=== PATIENT | female | born 1985 | race Caucasian/White ===

== ENCOUNTER 2016-09-14 14:32 | Emergency (ER) | payer MEDICAID ==
[~2016-09-14] VITALS: Ht 170.2 cm; Wt 100.0 kg
[~2016-09-14 14:32] MED LIST: ALPRAZOLAM0.5 MG PO; AMLODIPINE5 MG PO; AMOXICILLIN/CL875 MG PO; AMOXICILLIN500 MG PO; AMOXICILLIN875 MG OR; ATENOLOL50 MG PO; ATIVAN0.5 MG PO; AUGMENTIN500TAB PO; AUGMENTIN875TAB PO; BACTRIM DS1 TAB PO; BUSPIRONE5 MG PO; BUT/APAP/CAF PO; CARAFATE1 GM PO; CIPROFLOXACN500 MG PO; COD OR; CONCEPT OB PO; CYMBALTA60 MG PO; DIFLUCAN150 MG PO; EFFEXOR37.5 MG PO; FIORICET PO; FIORICET/COD OR; FIORINAL OR; FLEXERIL PO; HYDROCHLOROT12.5 MG PO; IMITREX100 M1 PO; INTEGRA F PO; KEFLEX500 MG PO; KETOROLAC60 MG/2 ML IM; KLOR-CON M1010 MEQ PO; KLOR-CON M2020 MEQ PO; LABETALOL100 MG PO; LAMICTAL100 M1 PO; LISINOP/HCTZ1 TAB PO; LISINOPRIL10 MG PO; LISINOPRIL20 MG PO; LOPRESSOR50 MG PO; LORTAB 5 OR; LORTAB 5 PO; LORTAB 7.57.5 MG PO; LORTAB5 PO; LYRICA100 MG PO; LYRICA300 MG PO; LYRICA50 MG PO; Levaquin PO; METOPROL TAR50 MG PO; METOPROLOL TART50 MG PO; METOPROLOL50 M1 PO; MIRALAX3350 NF PO; NABUMETONE750 MG PO; NAPROSYN500 MG PO; NAPROXEN500 MG PO; NORCO1 TAB PO; OMEPRAZOLE20 MG PO; PANTOPRAZOLE SO40 MG OR; PERCOCET 10/31 COMBO PO; PHENERGAN SUP12.5 MG RE; POTASSIUM CHLO20 MEQ OR; PRENATAL1 TAB OR; PROCARDIA XL30 MG PO; PROTONIX20 M1 PO; PROTONIX40 MG PO; PROVERA10 MG PO; QUETIAPINE FUM100 MG PO; RISPERIDONE0.5 MG PO; SEROQUEL100 MG PO; STRATTERA18 MG OR; STRATTERA40 MG PO; STRATTERA60 MG PO; TOPAMAX100 MG PO; TORADOL PO; TRAMADOL HCL50 MG PO; TRAZODONE50 MG PO; TRILEPTAL150 M1 PO; TRILEPTAL300 M1 OR; TYLENOL # 31 TA1 PO; ULTRAM50 M1 PO; ULTRAM50 MG PO; VENLAFAXINE HC150 M1; VENLAFAXINE HC150 M1 PO; VENLAFAXINE HCL75 M1 PO; VENLAFAXINE37.5 M2 PO; ZOFRAN ODT4 MG OR; ZOFRAN ODT4 MG PO; [UNRECOGNIZED DRUG - OTHER] PO
[2016-09-14 15:11] LABS: HEMATOCRIT 39.7 % (37.0-47.0); HEMOGLOBIN 14.2 g/dl (12.0-16.0); IMMATURE GRANULOCYTES 0.3 % (0.0-1.0); MEAN CELL VOLUME 87.4 fL CALC (80.0-100.0); MEAN CORPUSCULAR HGB 31.3 pG CALC (26.0-32.0); MEAN CORPUSCULAR HGB CONC 35.8 g/L CALC (32.0-36.0); NEUT# 8.06 thou/uL (2.00-7.15); RED BLOOD COUNT 4.54 mill/uL (4.20-5.60); RED CELL DISTRI WIDTH 11.9 % (11.5-15.5)
[2016-09-14 15:19] LABS: ALBUMIN 4.6 g/dL (3.2-5.0); ALKALINE PHOSPHATASE 50 u/l (38-126); ANION GAP 13 (6-22 (CALC)); BILIRUBIN, TOTAL 0.5 mg/dL (0.0-1.4); BUN 9 mg/dL (7-17); BUN/CREATININE RATIO 12 (12-20 (CALC)); CALCIUM 9.5 mg/dL (8.4-10.2); CARBON DIOXIDE 27 mmol/l (22-30); CHLORIDE 105 mmol/l (95-108); CREATININE 0.7 mg/dL (0.5-1.0); GFR > 60 ML/MIN (>=60 (CALC)); GFR FOR AFR.AMER. > 60 ML/MIN (>=60 (CALC)); GLUCOSE 100 mg/dL (65-105); POTASSIUM 3.6 mmol/l (3.5-5.1); SGOT/AST 27 u/l (14-36); SGPT/ALT 30 u/l (9-52); SODIUM 142 mmol/l (137-146); TOTAL PROTEIN 7.9 g/dL (6.3-8.2)
[2016-09-14 15:31] LABS: MYOGLOBIN 26 ng/mL (0 - 62)
[2016-09-14 16:09] VITALS: BP 169/87
== END 2016-09-14 16:10 | disposition home or self-care (01) | DRG 312 ==
LOC: ED 14:32
PROVIDERS: Emergency Medicine
DX: R55 Syncope and collapse (principal); I10 Essential (primary) hypertension; I51.7 Cardiomegaly; F31.9 Bipolar disorder, unspecified; M19.90 Unspecified osteoarthritis, unspecified site; M79.7 Fibromyalgia; F17.210 Nicotine dependence, cigarettes, uncomplicated

== ENCOUNTER 2016-09-23 15:05 | Emergency (ER) | payer OTHER ==
[~2016-09-23] VITALS: Ht 170.2 cm; Wt 100.0 kg
[2016-09-23 16:20] LABS: HEMATOCRIT 38.8 % (37.0-47.0); HEMOGLOBIN 13.5 g/dl (12.0-16.0); IMMATURE GRANULOCYTES 0.2 % (0.0-1.0); MEAN CELL VOLUME 87.8 fL CALC (80.0-100.0); MEAN CORPUSCULAR HGB 30.5 pG CALC (26.0-32.0); MEAN CORPUSCULAR HGB CONC 34.8 g/L CALC (32.0-36.0); NEUT# 3.07 thou/uL (2.00-7.15); RED BLOOD COUNT 4.42 mill/uL (4.20-5.60); RED CELL DISTRI WIDTH 11.8 % (11.5-15.5)
[2016-09-23 16:30] LABS: ALBUMIN 4.3 g/dL (3.2-5.0); ALKALINE PHOSPHATASE 47 u/l (38-126); ANION GAP 14 (6-22 (CALC)); BILIRUBIN, TOTAL 0.4 mg/dL (0.0-1.4); BUN 10 mg/dL (7-17); BUN/CREATININE RATIO 13 (12-20 (CALC)); CALCIUM 8.8 mg/dL (8.4-10.2); CARBON DIOXIDE 28 mmol/l (22-30); CHLORIDE 103 mmol/l (95-108); CREATININE 0.8 mg/dL (0.5-1.0); GFR > 60 ML/MIN (>=60 (CALC)); GFR FOR AFR.AMER. > 60 ML/MIN (>=60 (CALC)); GLUCOSE 82 mg/dL (65-105); POTASSIUM 3.5 mmol/l (3.5-5.1); SGOT/AST 27 u/l (14-36); SGPT/ALT 28 u/l (9-52); SODIUM 141 mmol/l (137-146); TOTAL PROTEIN 7.5 g/dL (6.3-8.2)
[2016-09-23 17:37] LABS: INFLUENZA A NONE DETECTED (NONE DETECT); INFLUENZA B NONE DETECTED (NONE DETECT)
[2016-09-23 18:46] LABS: URINE BILIRUBIN - DIPSTICK NEGATIVE (NEGATIVE); URINE BLOOD DIPSTICK NEGATIVE (NEGATIVE); URINE CLARITY CLEAR; URINE COLOR YELLOW; URINE GLUCOSE - DIPSTICK NEGATIVE (NEGATIVE); URINE KETONE NEGATIVE (NEGATIVE); URINE LEUK ESTERASE NEGATIVE (Negative); URINE NITRITE - DIPSTICK NEGATIVE (Negative); URINE PROTEIN - DIPSTICK NEGATIVE (NEG-TRACE); URINE UROBILINOGEN - DIPSTICK 0.2 E.U./dL (0.2)
[2016-09-23] MEDS ORDERED: AMOXICILLIN500 MG PO (19:24)
[2016-09-23 19:37] VITALS: BP 139/84
== END 2016-09-23 19:37 | disposition home or self-care (01) | DRG 864 ==
LOC: ED 15:05
PROVIDERS: Emergency Medicine
DX: R50.9 Fever, unspecified (principal); I10 Essential (primary) hypertension; R05 Cough; J02.9 Acute pharyngitis, unspecified; R11.2 Nausea with vomiting, unspecified; H92.09 Otalgia, unspecified ear; F31.9 Bipolar disorder, unspecified; M79.7 Fibromyalgia; G89.29 Other chronic pain; M54.9 Dorsalgia, unspecified; F17.210 Nicotine dependence, cigarettes, uncomplicated

== ENCOUNTER 2017-01-31 20:43 | Emergency (ER) | payer SELFPAY ==
[~2017-01-31] VITALS: Ht 170.2 cm; Wt 87.3 kg
[2017-01-31 21:20] LABS: HEMATOCRIT 37.7 % (37.0-47.0); HEMOGLOBIN 13.2 g/dl (12.0-16.0); IMMATURE GRANULOCYTES 0.5 % (0.0-1.0); MEAN CELL VOLUME 88.5 fL CALC (80.0-100.0); NEUT# 7.06 thou/uL (2.00-7.15); RED BLOOD COUNT 4.26 mill/uL (4.20-5.60); RED CELL DISTRI WIDTH 12.2 % (11.5-15.5)
[2017-01-31 21:27] LABS: BARBITURATES NEGATIVE (NEGATIVE); COCAINE NEGATIVE (NEGATIVE); METHADONE NEGATIVE (NEGATIVE); OXCYCODONE NEGATIVE (NEGATIVE); TETRAHYDROCANNABIONOL POSITIVE (NEGATIVE); TRICYLIC ANTIDEPRESSANTS NEGATIVE (NEGATIVE)
[2017-01-31 21:29] LABS: ALBUMIN 4.2 g/dL (3.2-5.0); ALKALINE PHOSPHATASE 46 u/l (38-126); ANION GAP 15 (6-22 (CALC)); BILIRUBIN, TOTAL 0.5 mg/dL (0.0-1.4); BUN 9 mg/dL (7-17); BUN/CREATININE RATIO 11 (12-20 (CALC)); CALCIUM 9.4 mg/dL (8.4-10.2); CARBON DIOXIDE 26 mmol/l (22-30); CHLORIDE 103 mmol/l (95-108); CREATININE 0.8 mg/dL (0.5-1.0); GFR > 60 ML/MIN (>=60 (CALC)); GFR FOR AFR.AMER. > 60 ML/MIN (>=60 (CALC)); GLUCOSE 98 mg/dL (65-105); SGOT/AST 23 u/l (14-36); SGPT/ALT 37 u/l (9-52); SODIUM 141 mmol/l (137-146); TOTAL PROTEIN 7.2 g/dL (6.3-8.2)
[2017-01-31 21:41] LABS: MYOGLOBIN 22 ng/mL (0 - 62)
[2017-01-31 23:10] VITALS: BP 137/75
[2017-01-31] MEDS ORDERED: XANAX0.5 MG PO (23:11)
== END 2017-01-31 23:23 | disposition home or self-care (01) | DRG 313 ==
LOC: ED 20:43
PROVIDERS: Emergency Medicine
DX: R07.89 Other chest pain (principal); I10 Essential (primary) hypertension; F41.0 Panic disorder [episodic paroxysmal anxiety]; R06.02 Shortness of breath; Z72.0 Tobacco use; M79.602 Pain in left arm; M79.7 Fibromyalgia
CPT/HCPCS: J2060; Q9967

== ENCOUNTER 2017-04-25 21:10 | Emergency (ER) | payer SELFPAY ==
[~2017-04-25 21:10] MED LIST changes: +XANAX0.5 MG PO
== END 2017-04-25 21:22 | disposition left against medical advice (07) | DRG 951 ==
LOC: ED 21:10 → LWOBS 21:22
DX: Z91.19 Patient's noncompliance with other medical treatment and regimen (principal)

== ENCOUNTER 2017-05-15 19:06 | Emergency (ER) | payer MEDICAID ==
[~2017-05-15] VITALS: Ht 170.2 cm; Wt 90.9 kg
[2017-05-15] MEDS ORDERED: LOSARTAN POT50 MG PO (19:48)
[2017-05-15 19:50] VITALS: BP 138/88
== END 2017-05-15 19:50 | disposition home or self-care (01) | DRG 948 ==
LOC: ED 19:06
DX: G89.18 Other acute postprocedural pain (principal); F17.210 Nicotine dependence, cigarettes, uncomplicated; M79.7 Fibromyalgia; M19.90 Unspecified osteoarthritis, unspecified site

== ENCOUNTER 2017-08-02 10:01 | Emergency (ER) | payer SELFPAY ==
[~2017-08-02] VITALS: Ht 170.2 cm; Wt 85.0 kg
[~2017-08-02 10:01] MED LIST changes: +LOSARTAN POT50 MG PO
[2017-08-02 11:05] LABS: HEMATOCRIT 39.5 % (37.0-47.0); HEMOGLOBIN 13.9 g/dl (12.0-16.0); IMMATURE GRANULOCYTES 0.2 % (0.0-1.0); MEAN CELL VOLUME 86.6 fL CALC (80.0-100.0); MEAN CORPUSCULAR HGB 30.5 pG CALC (26.0-32.0); MEAN CORPUSCULAR HGB CONC 35.2 g/L CALC (32.0-36.0); NEUT# 3.44 thou/uL (2.00-7.15); RED BLOOD COUNT 4.56 mill/uL (4.20-5.60); RED CELL DISTRI WIDTH 11.9 % (11.5-15.5)
[2017-08-02 11:16] LABS: ALBUMIN 4.2 g/dL (3.2-5.0); ALKALINE PHOSPHATASE 63 u/l (38-126); BILIRUBIN, TOTAL 0.4 mg/dL (0.0-1.4); BUN 11 mg/dL (7-17); BUN/CREATININE RATIO 13 (12-20 (CALC)); CARBON DIOXIDE 26 mmol/l (22-30); CREATININE 0.8 mg/dL (0.5-1.0); GFR > 60 ML/MIN (>=60 (CALC)); GFR FOR AFR.AMER. > 60 ML/MIN (>=60 (CALC)); SGOT/AST 31 u/l (14-36); SGPT/ALT 47 u/l (9-52); SODIUM 143 mmol/l (137-146); TOTAL PROTEIN 7.9 g/dL (6.3-8.2)
[2017-08-02 11:18] LABS: ANION GAP 17 (6-22 (CALC)); CHLORIDE 104 mmol/l (95-108)
[2017-08-02 11:36] LABS: URINE BILIRUBIN - DIPSTICK NEGATIVE (NEGATIVE); URINE BLOOD DIPSTICK NEGATIVE (NEGATIVE); URINE COLOR YELLOW; URINE GLUCOSE - DIPSTICK NEGATIVE (NEGATIVE); URINE KETONE NEGATIVE (NEGATIVE); URINE LEUK ESTERASE NEGATIVE (Negative); URINE NITRITE - DIPSTICK NEGATIVE (Negative); URINE PH 6.5 (4.5-8.0); URINE PROTEIN - DIPSTICK NEGATIVE (NEG-TRACE); URINE UROBILINOGEN - DIPSTICK 0.2 E.U./dL (0.2)
[2017-08-02 11:38] LABS: URINE CLARITY CLEAR
[2017-08-02 11:40] LABS: BARBITURATES NEGATIVE (NEGATIVE); COCAINE NEGATIVE (NEGATIVE); METHADONE NEGATIVE (NEGATIVE); OXCYCODONE NEGATIVE (NEGATIVE); TETRAHYDROCANNABIONOL POSITIVE (NEGATIVE); TRICYLIC ANTIDEPRESSANTS NEGATIVE (NEGATIVE)
[2017-08-02] MEDS ORDERED: TORADOL PO (12:59)
[2017-08-02 13:05] VITALS: BP 166/90
== END 2017-08-02 13:10 | disposition home or self-care (01) | DRG 552 ==
LOC: ED 10:01
PROVIDERS: Emergency Medicine
DX: M54.9 Dorsalgia, unspecified (principal); F17.210 Nicotine dependence, cigarettes, uncomplicated; M79.7 Fibromyalgia; M19.90 Unspecified osteoarthritis, unspecified site; R42 Dizziness and giddiness
CPT/HCPCS: Q9967

== ENCOUNTER 2017-11-13 23:21 | Emergency (ER) | payer OTHER ==
[~2017-11-13] VITALS: Ht 170.2 cm; Wt 97.4 kg
[2017-11-13 23:51] LABS: URINE BILIRUBIN - DIPSTICK NEGATIVE (NEGATIVE); URINE BLOOD DIPSTICK SMALL (NEGATIVE); URINE CLARITY SL CLOUDY; URINE COLOR YELLOW; URINE GLUCOSE - DIPSTICK NEGATIVE (NEGATIVE); URINE KETONE NEGATIVE (NEGATIVE); URINE LEUK ESTERASE NEGATIVE (NEGATIVE); URINE NITRITE - DIPSTICK NEGATIVE (Negative); URINE PROTEIN - DIPSTICK NEGATIVE (NEG-TRACE); URINE SPECIFIC GRAVITY 1.025; URINE UROBILINOGEN - DIPSTICK 0.2 E.U./dL (0.2)
[2017-11-13 23:55] LABS: BARBITURATES NEGATIVE (NEGATIVE); COCAINE NEGATIVE (NEGATIVE); METHADONE NEGATIVE (NEGATIVE); OXCYCODONE NEGATIVE (NEGATIVE); TETRAHYDROCANNABIONOL POSITIVE (NEGATIVE); TRICYLIC ANTIDEPRESSANTS NEGATIVE (NEGATIVE)
[2017-11-14 00:03] LABS: URINE BACTERIA FEW hpf; URINE MUCUS FEW hpf (NONE-FEW); URINE SQUAMOUS EPITHELIAL CELL MODERATE EPI/hpf (0-FEW)
[2017-11-14 00:06] LABS: HEMATOCRIT 38.5 % (37.0-47.0); HEMOGLOBIN 13.3 g/dl (12.0-16.0); IMMATURE GRANULOCYTES 0.1 % (0.0-5.0); MEAN CELL VOLUME 87.3 fL CALC (80.0-100.0); MEAN CORPUSCULAR HGB 30.2 pG CALC (26.0-32.0); MEAN CORPUSCULAR HGB CONC 34.5 g/L CALC (32.0-36.0); NEUT# 4.77 thou/uL (2.00-7.15); RED BLOOD COUNT 4.41 mill/uL (4.20-5.60); RED CELL DISTRI WIDTH 11.6 % (11.5-15.5)
[2017-11-14 00:19] LABS: ALBUMIN 4.4 g/dL (3.2-5.0); ALKALINE PHOSPHATASE 60 u/l (38-126); AMYLASE 84 u/l (30-110); ANION GAP 15 (6-22 (CALC)); BILIRUBIN, TOTAL 0.3 mg/dL (0.0-1.4); BUN 9 mg/dL (7-17); BUN/CREATININE RATIO 11 (12-20 (CALC)); CARBON DIOXIDE 26 mmol/l (22-30); CHLORIDE 104 mmol/l (95-108); CREATININE 0.9 mg/dL (0.5-1.0); GFR > 60 ML/MIN (>=60 (CALC)); GFR FOR AFR.AMER. > 60 ML/MIN (>=60 (CALC)); LIPASE 148 u/l (23-300); POTASSIUM 3.4 mmol/l (3.5-5.1); SGOT/AST 26 u/l (14-36); SGPT/ALT 41 u/l (9-52); SODIUM 142 mmol/l (137-146); TOTAL PROTEIN 7.9 g/dL (6.3-8.2)
[2017-11-14] MEDS ORDERED: CIPROFLOXACN500 MG PO (01:42)
[2017-11-14] MEDS ORDERED: PREVACID30 M3 PO (01:42)
[2017-11-14] MEDS ORDERED: CARAFATE1 G1 PO (01:44)
[2017-11-14 02:00] VITALS: BP 138/76
== END 2017-11-14 02:09 | disposition home or self-care (01) ==
LOC: ED 23:21
PROVIDERS: Emergency Medicine
DX: N39.0 Urinary tract infection, site not specified (principal); K29.70 Gastritis, unspecified, without bleeding; N20.0 Calculus of kidney; Z87.891 Personal history of nicotine dependence; K62.5 Hemorrhage of anus and rectum; R31.9 Hematuria, unspecified
CPT/HCPCS: S0164

== ENCOUNTER 2018-01-25 19:01 | Emergency (ER) | payer OTHER ==
[~2018-01-25] VITALS: Ht 170.2 cm; Wt 97.4 kg
[~2018-01-25 19:01] MED LIST changes: +CARAFATE1 G1 PO; +PREVACID30 M3 PO
[2018-01-25] MEDS ORDERED: FLEXERIL PO (20:47)
[2018-01-25] MEDS ORDERED: LORTAB 1010 MG PO (20:47)
[2018-01-25 20:55] VITALS: BP 150/101
== END 2018-01-25 20:55 | disposition home or self-care (01) ==
LOC: ED 19:01
DX: S83.91XA Sprain of unspecified site of right knee, initial encounter (principal); S73.101A Unspecified sprain of right hip, initial encounter; I10 Essential (primary) hypertension; M19.90 Unspecified osteoarthritis, unspecified site; M79.7 Fibromyalgia; F31.9 Bipolar disorder, unspecified; W01.198A Fall on same level from slipping, tripping and stumbling with subsequent striking against other object, initial encounter; Y92.002 Bathroom of unspecified non-institutional (private) residence as the place of occurrence of the external cause

== ENCOUNTER 2018-10-30 10:17 | Emergency (ER) | payer SELFPAY ==
[~2018-10-30] VITALS: Ht 170.2 cm; Wt 97.2 kg
[~2018-10-30 10:17] MED LIST changes: +CARVEDILOL12.5 MG PO; +LORTAB 1010 MG PO; +PHENERGAN25 MG/TAB PO
[2018-10-30] MEDS ORDERED: METHOTREXATE2.5 MG PO (11:05)
[2018-10-30] MEDS ORDERED: FOLIC ACID1 M1 PO (11:06)
[2018-10-30] MEDS ORDERED: ALPRAZOLAM0.5 MG PO (11:07)
[2018-10-30] MEDS ORDERED: ESTRADIOL0.5 MG PO (11:07)
[2018-10-30] MEDS ORDERED: LOSARTAN POT100 MG PO (11:08)
[2018-10-30] MEDS ORDERED: PROAIR HFA108 MCG/AC PO (11:10)
[2018-10-30] MEDS ORDERED: VENLAFAXINE HC150 MG PO (11:10)
[2018-10-30] MEDS ORDERED: CLONIDINE HCL0.1 MG PO (11:11)
[2018-10-30] MEDS ORDERED: ATORVASTATIN CA20 MG PO (11:12)
[2018-10-30] MEDS ORDERED: SYMBICORT1 AE1 IN (11:13)
[2018-10-30] MEDS ORDERED: ONDANSETRON ODT8 MG PO (11:14)
[2018-10-30] MEDS ORDERED: RISPERDAL2 MG PO (11:15)
[2018-10-30] MEDS ORDERED: OXCARBAZEPINE300 MG PO (11:16)
[2018-10-30] MEDS ORDERED: QUETIAPINE FUM300 MG PO (11:16)
[2018-10-30 11:50] VITALS: BP 150/103
== END 2018-10-30 11:50 | disposition home or self-care (01) | DRG 951 ==
LOC: ED 10:17
DX: Z48.01 Encounter for change or removal of surgical wound dressing (principal); I10 Essential (primary) hypertension

== ENCOUNTER 2018-12-05 11:01 | Emergency (ER) | payer OTHER ==
[~2018-12-05] VITALS: Ht 170.2 cm; Wt 70.0 kg
[~2018-12-05 11:01] MED LIST changes: +ATORVASTATIN CA20 MG PO; +CLONIDINE HCL0.1 MG PO; +ESTRADIOL0.5 MG PO; +FOLIC ACID1 M1 PO; +LOSARTAN POT100 MG PO; +METHOTREXATE2.5 MG PO; +ONDANSETRON ODT8 MG PO; +OXCARBAZEPINE300 MG PO; +PROAIR HFA108 MCG/AC PO; +QUETIAPINE FUM300 MG PO; +RISPERDAL2 MG PO; +SYMBICORT1 AE1 IN; +VENLAFAXINE HC150 MG PO
[2018-12-05 11:37] LABS: HEMATOCRIT 39.8 % (37.0-47.0); HEMOGLOBIN 13.4 g/dl (12.0-16.0); IMMATURE GRANULOCYTES 0.3 % (0.0-5.0); MEAN CELL VOLUME 88.2 fL CALC (80.0-100.0); MEAN CORPUSCULAR HGB 29.7 pG CALC (26.0-32.0); MEAN CORPUSCULAR HGB CONC 33.7 g/L CALC (32.0-36.0); NEUT# 3.48 thou/uL (2.00-7.15); RED BLOOD COUNT 4.51 mill/uL (4.20-5.60); RED CELL DISTRI WIDTH 11.9 % (11.5-15.5)
[2018-12-05 11:55] LABS: ALBUMIN 4.4 g/dL (3.2-5.0); ALKALINE PHOSPHATASE 65 u/l (38-126); ANION GAP 12 (6-22 (CALC)); BILIRUBIN, TOTAL 0.5 mg/dL (0.0-1.4); BUN 8 mg/dL (7-17); BUN/CREATININE RATIO 10 (12-20 (CALC)); CARBON DIOXIDE 29 mmol/l (22-30); CHLORIDE 104 mmol/l (95-108); CREATININE 0.8 mg/dL (0.5-1.0); GFR > 60 ML/MIN (>=60 (CALC)); GFR FOR AFR.AMER. > 60 ML/MIN (>=60 (CALC)); POTASSIUM 3.4 mmol/l (3.5-5.1); SGOT/AST 28 u/l (14-36); SODIUM 142 mmol/l (137-146)
[2018-12-05 13:30] VITALS: BP 132/77
[2018-12-05] MEDS ORDERED: TORADOL PO (13:34)
[2018-12-05] MEDS ORDERED: CATAPRES0.1 MG PO (13:34)
== END 2018-12-05 13:52 | disposition home or self-care (01) | DRG 305 ==
LOC: ED 11:01
PROVIDERS: Emergency Medicine
DX: I10 Essential (primary) hypertension (principal); R51 Headache; R50.9 Fever, unspecified; F17.210 Nicotine dependence, cigarettes, uncomplicated

== ENCOUNTER 2019-01-23 11:51 | Emergency (ER) | payer OTHER ==
[~2019-01-23] VITALS: Ht 170.2 cm; Wt 95.0 kg
[~2019-01-23 11:51] MED LIST changes: +CATAPRES0.1 MG PO
[2019-01-23 14:11] LABS: HEMATOCRIT 40.3 % (37.0-47.0); HEMOGLOBIN 13.9 g/dl (12.0-16.0); IMMATURE GRANULOCYTES 0.3 % (0.0-5.0); MEAN CELL VOLUME 86.3 fL CALC (80.0-100.0); MEAN CORPUSCULAR HGB 29.8 pG CALC (26.0-32.0); MEAN CORPUSCULAR HGB CONC 34.5 g/L CALC (32.0-36.0); NEUT# 3.67 thou/uL (2.00-7.15); RED BLOOD COUNT 4.67 mill/uL (4.20-5.60); RED CELL DISTRI WIDTH 11.9 % (11.5-15.5)
[2019-01-23 14:12] LABS: URINE BILIRUBIN - DIPSTICK NEGATIVE (NEGATIVE); URINE BLOOD DIPSTICK NEGATIVE (NEGATIVE); URINE COLOR YELLOW; URINE GLUCOSE - DIPSTICK NEGATIVE (NEGATIVE); URINE KETONE NEGATIVE (NEGATIVE); URINE LEUK ESTERASE NEGATIVE (NEGATIVE); URINE NITRITE - DIPSTICK NEGATIVE (Negative); URINE PH 5.5 (4.5-8.0); URINE PROTEIN - DIPSTICK NEGATIVE (NEG-TRACE); URINE UROBILINOGEN - DIPSTICK 0.2 E.U./dL (0.2)
[2019-01-23 14:23] LABS: ALBUMIN 4.6 g/dL (3.2-5.0); ALKALINE PHOSPHATASE 75 u/l (38-126); AMYLASE 56 u/l (30-110); ANION GAP 13 (6-22 (CALC)); BILIRUBIN, TOTAL 0.6 mg/dL (0.0-1.4); BUN 9 mg/dL (7-17); BUN/CREATININE RATIO 11 (12-20 (CALC)); CARBON DIOXIDE 27 mmol/l (22-30); CHLORIDE 103 mmol/l (95-108); CREATININE 0.8 mg/dL (0.5-1.0); GFR > 60 ML/MIN (>=60 (CALC)); GFR FOR AFR.AMER. > 60 ML/MIN (>=60 (CALC)); LIPASE 80 u/l (23-300); POTASSIUM 3.8 mmol/l (3.5-5.1); SGOT/AST 39 u/l (14-36); SODIUM 139 mmol/l (137-146); TOTAL PROTEIN 8.1 g/dL (6.3-8.2)
[2019-01-23] MEDS ORDERED: LIBRAX1 CAP PO (16:34)
[2019-01-23 16:46] VITALS: BP 166/81
== END 2019-01-23 17:00 | disposition home or self-care (01) ==
LOC: ED 11:51
PROVIDERS: Family Medicine
DX: R10.31 Right lower quadrant pain (principal); R10.32 Left lower quadrant pain; I10 Essential (primary) hypertension; F17.200 Nicotine dependence, unspecified, uncomplicated
CPT/HCPCS: Q9967

== ENCOUNTER 2019-07-05 | Day surgery (SDC) | payer MEDICARE, OTHER ==
[~2019-07-05] MED LIST changes: +BUPROPION150 M4 PO; +CARVEDILOL25 MG PO; +CYCLOBENZAPR10 MG PO; +DULOXETINE HCL30 MG PO; +EFFEXOR XR37.5 MG PO; +HYDROXYCHLOR200 M1 PO; +ISOSORBIDE MONO30 MG PO; +LIBRAX1 CAP PO; +MOTRIN800 MG PO; +NIFEDIPINE ER60 M1 PO; +PROMETHAZINE12.5 M4 PO; +RISPERIDONE2 MG PO; +SUCRALFATE1 GM PO; +TAMSULOSIN HCL0.4 MG PO
[2019-07-05] MEDS ORDERED: PROTONIX20 M1 PO (12:38)
[2019-07-17] MEDS ORDERED: PROTONIX40 M2 PO (11:05)
== END 2019-07-05 12:45 | disposition home or self-care (01) ==
DX: K29.71 Gastritis, unspecified, with bleeding (principal); K21.0 Gastro-esophageal reflux disease with esophagitis; K44.9 Diaphragmatic hernia without obstruction or gangrene; K64.8 Other hemorrhoids; I10 Essential (primary) hypertension; Z79.899 Other long term (current) drug therapy

== ENCOUNTER 2019-07-11 | Emergency (ER) | payer MEDICARE, OTHER ==
[2019-07-11] MEDS ORDERED: HYDROCO/APAP1 TA9 PO (23:02)
[2019-07-17] MEDS ORDERED: PROTONIX40 M2 PO (11:05)
== END 2019-07-11 23:20 | disposition home or self-care (01) ==
DX: S63.501A Unspecified sprain of right wrist, initial encounter (principal); S60.211A Contusion of right wrist, initial encounter; I10 Essential (primary) hypertension; F17.210 Nicotine dependence, cigarettes, uncomplicated; W18.39XA Other fall on same level, initial encounter

== ENCOUNTER 2019-08-29 | Emergency (ER) | payer MEDICARE, OTHER ==
[~2019-08-29] MED LIST changes: +HYDROCO/APAP1 TA9 PO; +PROTONIX40 M2 PO
[2019-08-29 19:22] LABS: HEMATOCRIT 39.6 % (37.0-47.0); HEMOGLOBIN 13.3 g/dl (12.0-16.0); IMMATURE GRANULOCYTES 0.3 % (0.0-5.0); MEAN CELL VOLUME 88.6 fL CALC (80.0-100.0); MEAN CORPUSCULAR HGB 29.8 pG CALC (26.0-32.0); MEAN CORPUSCULAR HGB CONC 33.6 g/dL CAL (32.0-36.0); NEUT# 4.64 thou/uL (2.00-7.15); RED BLOOD COUNT 4.47 mill/uL (4.20-5.60); RED CELL DISTRI WIDTH 12.5 % (11.5-15.5)
[2019-08-29 19:37] LABS: ALBUMIN 4.4 g/dL (3.2-5.0); ALKALINE PHOSPHATASE 72 u/l (38-126); ANION GAP 11 (6-22 (CALC)); BILIRUBIN, TOTAL 0.5 mg/dL (0.0-1.4); BUN 8 mg/dL (7-17); BUN/CREATININE RATIO 9 (12-20 (CALC)); CARBON DIOXIDE 28 mmol/l (22-30); CHLORIDE 104 mmol/l (95-108); GFR > 60 ML/MIN (>=60 (CALC)); GFR FOR AFR.AMER. > 60 ML/MIN (>=60 (CALC)); POTASSIUM 3.6 mmol/l (3.5-5.1); SGOT/AST 28 u/l (14-36); SODIUM 139 mmol/l (137-146)
[2019-08-29 20:00] LABS: COCAINE NEGATIVE (NEGATIVE); TETRAHYDROCANNABIONOL POSITIVE (NEGATIVE); URINE BILIRUBIN - DIPSTICK NEGATIVE (NEGATIVE); URINE BLOOD DIPSTICK NEGATIVE (NEGATIVE); URINE COLOR YELLOW; URINE GLUCOSE - DIPSTICK NEGATIVE (NEGATIVE); URINE KETONE NEGATIVE (NEGATIVE); URINE LEUK ESTERASE NEGATIVE (NEGATIVE); URINE NITRITE - DIPSTICK NEGATIVE (Negative); URINE PROTEIN - DIPSTICK TRACE mg/dL (NEG-TRACE); URINE SPECIFIC GRAVITY >=1.030; URINE UROBILINOGEN - DIPSTICK 0.2 E.U./dL (0.2)
[2019-08-29 20:01] LABS: BARBITURATES NEGATIVE (NEGATIVE); METHADONE NEGATIVE (NEGATIVE); OXCYCODONE NEGATIVE (NEGATIVE); TRICYLIC ANTIDEPRESSANTS NEGATIVE (NEGATIVE)
== END 2019-08-29 21:30 | disposition home or self-care (01) ==
PROVIDERS: Family Medicine
DX: R55 Syncope and collapse (principal); S09.90XA Unspecified injury of head, initial encounter; I10 Essential (primary) hypertension; F17.210 Nicotine dependence, cigarettes, uncomplicated; W19.XXXA Unspecified fall, initial encounter; Z20.828 Contact with and (suspected) exposure to other viral communicable diseases; R53.1 Weakness; R42 Dizziness and giddiness

== ENCOUNTER 2020-08-11 16:41 | Emergency (ER) | payer MEDICARE, OTHER | END 2020-08-11 17:21 | disposition left against medical advice (07) | LOC: ED 16:41 → LWOBS 17:20 | DX: Z53.21 Procedure and treatment not carried out due to patient leaving prior to being seen by health care provider (principal) ==

== ENCOUNTER 2020-09-12 17:20 | Emergency (ER) | payer MEDICARE, OTHER ==
[~2020-09-12] VITALS: Ht 170.2 cm; Wt 77.2 kg
[2020-09-12] MEDS ORDERED: WELLBUTRIN150 M1 PO (18:03)
[2020-09-12] MEDS ORDERED: RISPERDAL0.5 MG PO (18:03)
[2020-09-12] MEDS ORDERED: VENLAFAXINE HCL75 M1 PO (18:03)
[2020-09-12] MEDS ORDERED: LIPITOR20 M1 PO (18:04)
[2020-09-12] MEDS ORDERED: IBUPROFEN600 MG PO (19:05)
[2020-09-12] MEDS ORDERED: FLEXERIL5 M1 PO (19:05)
[2020-09-12 19:06] VITALS: BP 152/93
== END 2020-09-12 19:17 | disposition home or self-care (01) ==
LOC: ED 17:20
DX: S39.92XA Unspecified injury of lower back, initial encounter (principal); R20.2 Paresthesia of skin; M54.5 Low back pain; G89.29 Other chronic pain; I10 Essential (primary) hypertension; F31.9 Bipolar disorder, unspecified; F41.9 Anxiety disorder, unspecified; F17.200 Nicotine dependence, unspecified, uncomplicated; Y04.8XXA Assault by other bodily force, initial encounter; Y92.009 Unspecified place in unspecified non-institutional (private) residence as the place of occurrence of the external cause

== ENCOUNTER 2020-12-11 12:27 | Emergency (ER) | payer MEDICARE, OTHER ==
[~2020-12-11] VITALS: Ht 170.2 cm; Wt 95.0 kg
[~2020-12-11 12:27] MED LIST changes: +FLEXERIL5 M1 PO; +IBUPROFEN600 MG PO; +LIPITOR20 M1 PO; +RISPERDAL0.5 MG PO; +WELLBUTRIN150 M1 PO
[2020-12-11 12:54] LABS: HEMATOCRIT 44.7 % (37.0-47.0); HEMOGLOBIN 14.8 g/dl (12.0-16.0); IMMATURE GRANULOCYTES 0.1 % (0.0-5.0); MEAN CELL VOLUME 88.5 fL CALC (80.0-100.0); MEAN CORPUSCULAR HGB 29.3 pG CALC (26.0-32.0); MEAN CORPUSCULAR HGB CONC 33.1 g/dL CAL (32.0-36.0); NEUT# 4.43 thou/uL (2.00-7.15); RED BLOOD COUNT 5.05 mill/uL (4.20-5.60); RED CELL DISTRI WIDTH 12.6 % (11.5-15.5)
[2020-12-11 13:06] LABS: HCG SERUM/URINE (NEG/POS) NEGATIVE (NEGATIVE)
[2020-12-11 13:09] LABS: ALBUMIN 4.6 g/dL (3.2-5.0); ALKALINE PHOSPHATASE 80 u/l (38-126); ANION GAP 18 (6-22 (CALC)); BILIRUBIN, TOTAL 0.7 mg/dL (0.0-1.4); BUN 9 mg/dL (7-17); BUN/CREATININE RATIO 9 (12-20 (CALC)); CARBON DIOXIDE 24 mmol/l (22-30); CHLORIDE 101 mmol/l (95-108); GFR > 60 ML/MIN (>=60 (CALC)); GFR FOR AFR.AMER. > 60 ML/MIN (>=60 (CALC)); POTASSIUM 3.2 mmol/l (3.5-5.1); SGOT/AST 31 u/l (14-36); SODIUM 140 mmol/l (137-146)
[2020-12-11 13:23] LABS: TOTAL PROTEIN 9.9 g/dL (6.3-8.2)
[2020-12-11] MEDS ORDERED: PREDNISONE50 MG PO (15:22)
[2020-12-11] MEDS ORDERED: TAM75CAP PO (15:22)
[2020-12-11] MEDS ORDERED: PROAIR HFA108 MCG/AC PO (15:22)
[2020-12-11 15:50] VITALS: BP 136/85
== END 2020-12-11 15:50 | disposition home or self-care (01) ==
LOC: ED 12:27 → ED-I 14:14 → ED 15:50
PROVIDERS: Family Medicine
DX: J11.1 Influenza due to unidentified influenza virus with other respiratory manifestations (principal); I10 Essential (primary) hypertension; M79.7 Fibromyalgia; M19.90 Unspecified osteoarthritis, unspecified site; F31.9 Bipolar disorder, unspecified; F41.9 Anxiety disorder, unspecified; Z85.42 Personal history of malignant neoplasm of other parts of uterus; Z85.43 Personal history of malignant neoplasm of ovary; F17.200 Nicotine dependence, unspecified, uncomplicated; Z20.822 Contact with and (suspected) exposure to COVID-19

== ENCOUNTER 2022-07-09 12:03 | Emergency (ER) | payer MEDICARE, OTHER ==
[~2022-07-09] VITALS: Ht 170.2 cm; Wt 90.0 kg
[2022-07-09] VITALS (14 sets, daily range): BP systolic 109–179; BP diastolic 71–115
[~2022-07-09 12:03] MED LIST changes: +PREDNISONE50 MG PO; +TAM75CAP PO
== END 2022-07-09 16:50 | disposition left against medical advice (07) ==
LOC: ED 12:03
DX: M54.50 Low back pain, unspecified (principal); I10 Essential (primary) hypertension; M79.7 Fibromyalgia; F31.9 Bipolar disorder, unspecified; F41.9 Anxiety disorder, unspecified; F17.200 Nicotine dependence, unspecified, uncomplicated; Z53.29 Procedure and treatment not carried out because of patient's decision for other reasons

== ENCOUNTER 2024-05-22 21:32 | Emergency (ER) | payer MEDICARE ==
[~2024-05-22] VITALS: Ht 170.2 cm; Wt 72.5 kg
[2024-05-22] MEDS ORDERED: KETOROLAC TROMETHAMINE 30 MG/ML SDV IM ONE (23:00)
[2024-05-22] MEDS ORDERED: LORazepam 1 MG/TAB PO ONE (23:05)
[2024-05-23] MEDS ORDERED: hydrALAZINE HCL 20 MG/ML VIAL(1 ML) IV ONE (00:05)
[2024-05-23] MEDS ORDERED: cloNIDine HCL 0.1 MG/TAB PO ONE (00:05)
[2024-05-23 00:23] LABS: BASO% 0.5 % (0-3); EOS% 3.4 % (0-8); HEMATOCRIT 37.8 % (37.0-47.0); HEMOGLOBIN 12.4 g/dl (12.0-16.0); IMMATURE GRANULOCYTES 0.1 % (0.0-5.0); LYMPH% 37.7 % (15-41); MEAN CELL VOLUME 89.6 fL CALC (80.0-100.0); MEAN CORPUSCULAR HGB 29.4 pG CALC (26.0-32.0); MEAN CORPUSCULAR HGB CONC 32.8 g/dL CAL (32.0-36.0); MONO% 5.2 % (2-13); NEUT# 4.39 thou/uL (2.00-7.15); NEUT% 53.1 % (42-76); RED BLOOD COUNT 4.22 mill/uL (4.20-5.60); RED CELL DISTRI WIDTH 12.3 % (11.5-15.5)
[2024-05-23 00:36] LABS: ALBUMIN 4.6 g/dL (3.2-5.0); BILIRUBIN, TOTAL 0.5 mg/dL (0.02-1.3); CREATININE 0.9 mg/dL (0.5-1.0); MAGNESIUM 1.9 mg/dL (1.6-2.3); POTASSIUM 3.2 mmol/l (3.5-5.1); TOTAL PROTEIN 7.9 g/dL (6.3-8.2)
[2024-05-23 01:01] VITALS: BP 161/107
[2024-05-23] MEDS ORDERED: MAGNESIUM OXIDE 400 MG/TAB PO ONE (01:10)
[2024-05-23] MEDS ORDERED: ACETAMINOPHEN 500 MG TAB PO ONE (01:10)
[2024-05-23] MEDS ORDERED: POTASSIUM CHLORIDE 20 MEQ/TAB PO ONE (01:10)
[2024-05-23 01:26] VITALS: BP 162/113
[2024-05-23 01:36] VITALS: BP 167/103
[2024-05-23 01:38] VITALS: BP 170/94
[2024-05-23 01:45] VITALS: BP 148/97
[2024-05-23 03:05] LABS: URINE BILIRUBIN - DIPSTICK Negative (NEGATIVE); URINE BLOOD DIPSTICK Trace-intact (NEGATIVE); URINE KETONE Negative (NEGATIVE); URINE NITRITE - DIPSTICK Negative (Negative); URINE PROTEIN - DIPSTICK Negative (NEG-TRACE); URINE UROBILINOGEN - DIPSTICK 0.2 E.U./dL (0.2)
[2024-05-23 03:07] LABS: URINE COLOR Yellow
[2024-05-23 03:13] LABS: URINE GLUCOSE - DIPSTICK Negative (NEGATIVE)
[2024-05-23] MEDS ORDERED: DICYCLOMINE HCL20 MG PO (03:13)
[2024-05-23 03:14] LABS: URINE LEUK ESTERASE Large (NEGATIVE)
[2024-05-23 03:19] LABS: URINE BACTERIA FEW hpf; URINE EPITHELIAL CELLS FEW EPI/hpf (0-FEW)
[2024-05-23 03:40] VITALS: BP 148/97
== END 2024-05-23 03:50 | disposition home or self-care (01) ==
LOC: ED 21:32
PROVIDERS: Internal Medicine
DX: N20.0 Calculus of kidney (principal); E27.9 Disorder of adrenal gland, unspecified; E87.6 Hypokalemia; I10 Essential (primary) hypertension; M79.7 Fibromyalgia; F17.200 Nicotine dependence, unspecified, uncomplicated; Z88.8 Allergy status to other drugs, medicaments and biological substances; Z87.442 Personal history of urinary calculi; R05.9 Cough, unspecified; R07.81 Pleurodynia
CPT/HCPCS: J0360